=== PATIENT | male | born 1985 | race Two or more races ===

== ENCOUNTER 2023-03-14 08:55 | Emergency (ER) | payer MEDICAID ==
[~2023-03-14] VITALS: Ht 177.8 cm; Wt 70.5 kg
[2023-03-14 08:57] VITALS: TEMP 97.9
[2023-03-14 11:12] VITALS: BP 130/76; PULSE 65; RESP 18
== END 2023-03-14 12:23 | disposition home or self-care (01) ==
LOC: EMS 08:55
DX: T17.298A Other foreign object in pharynx causing other injury, initial encounter (principal)
CPT/HCPCS: 70490; 99284; Z7502